=== PATIENT | female | born 1955 | race Two or more races ===

== ENCOUNTER → 2023-03-23 | Day surgery (SDC) | payer OTHER ==
[~2023-03-23] MED LIST: ADULT LOW DOSE81 M1; CLOPIDOGREL BIS75 MG PO; COZAAR50 MG PO; GRALISE600 MG; HYSINGLA; METFORMIN HCL1000 MG; PEPCID AC20 MG PO; PLAVIX75 MG PO; QUETIAPINE FUMA50 M1 PO; SERTRALINE20 MG/1 ML
== END | disposition home or self-care (01) ==
LOC: ADM 03-21 15:15 → CIR.AMB 06:48 → EDBD 15:15
PROVIDERS: ATTEND Surgery
DX: C50.412 Malignant neoplasm of upper-outer quadrant of left female breast (principal); C77.3 Secondary and unspecified malignant neoplasm of axilla and upper limb lymph nodes; R59.0 Localized enlarged lymph nodes